=== PATIENT | male | born 1965 | race African-American/Black ===

== ENCOUNTER 2021-02-17 01:57 | Day surgery (SDC) | payer BC, SELFPAY ==
[2021-02-02 13:18] VITALS: BMI 30.4
[2021-02-17 08:48] VITALS: BP 152/105; PULSE 76; RESP 16; TEMP 36.1; O2SAT 99
[2021-02-17] MEDS: LACTATED RINGERS 1,000 ML 150 ML IV CONT (09:01)
--- NOTE | 2021-02-17 09:31 | WPDANESEPPF ---
Anes - Initial Pre Proc Eval Procedure: Operation Date: 02/17/21 09:30 Proposed Procedures p Screening Colonoscopy - Aubrey Reyez MD Date/Time: 02/17/21 09:31 Surgeon: Aubrey Reyez MD Pre Op Diagnosis: family hx of colon ca, 280.0 Patient Data Age: 55 Gender: M Height: 1.73 m Weight: 91 kg Last Vital Signs Temp 97.0 F L 02/17/21 08:48 Pulse 76 02/17/21 08:48 Resp 16 02/17/21 08:48 BP 152/105 H 02/17/21 08:48 Pulse Ox 99 02/17/21 08:48 Allergies Allergy/AdvReac Type Severity Reaction Status Date / Time Penicillins Allergy Unknown Nausea and Verified 02/17/21 08:34 Vomiting Home Medications Medication Instructions Recorded Confirmed Type cholecalciferol (vitamin D3) 50 2,000 unit PO DAILY 04/23/19 02/17/21 History mcg (2,000 unit) tablet omega-3 fatty acids 1,000 mg 1,000 mg PO DAILY 04/12/20 02/17/21 History capsule calcium carbonate 500 mg calcium 500 mg PO DAILY 11/11/20 02/17/21 History (1,250 mg) tablet loratadine [Claritin] 10 mg PO DAILY 02/02/21 02/17/21 History Patient hx anesthesia problems: none Family hx anesthesia problems: none PMFSH Past Medical History Medical History (Updated 02/17/21 @ 09:31 by Yung Thomas MD) Essential (primary) hypertension borderline; no medications Hyperlipidemia, unspecified borderline no medications Family History Family History Father Carcinoma of colon Family history of malignant melanoma Patient's father is Mother Family history of malignant neoplasm of breast in first degree relative Sibling Family history of malignant neoplasm of breast in first degree relative Other Asthma Social History Social History Smoking status: Never smoker Alcohol intake: current Drinks per week: 4 Substance use type: does not use Living arrangements: with family Spiritual care concerns: No Anes - Eval Final PreProcedure Day of Procedure 02/17/21 09:31 Patient weight: overweight Heart: regular rate and rhythm Lungs: clear to auscultation Airway: Mallampati scale class II Neurological: alert and oriented Last oral intake: >/= 8 hours ASA classification: II Emergent: no Anesthetic plan: proceed Anesthesia type and monitoring: general GIVS and standard monitoring Informed Consent: The patient's anesthetic plan and its attendant risks and benefits were discussed with the patient/family/POA. Questions were solicited and answers provided to the satisfaction of the patient/family/POA.
--- NOTE | 2021-02-17 09:42 | PM.HPGS ---
History of Present Illness History of Present Illness Consent: Risks, benefits, and alternatives have been discussed and questions answered. Patient agrees to proceed with procedure. Chief complaint: family hx of colon ca, 280.0 Narrative: Dank Silver is a 55 year old male here for first screening colonoscopy Review of Systems Constitutional: Constitutional: Denies headache(s) and Denies weakness Eyes: Eyes: Denies blurry vision ENT: Reports Normal hearing present, Denies headache(s) and Denies neck pain Cardiovascular: Cardiovascular: Denies chest pain and Denies dyspnea Respiratory: Respiratory: Denies dyspnea Gastrointestinal: Gastrointestinal: Reports no additional gastrointestinal complaints Genitourinary: Genitourinary: Denies dysuria Musculoskeletal: Musculoskeletal: Denies neck pain Integumentary/Breasts: Skin/Breast: Denies dry skin Neurologic: Reports Normal hearing present, Denies headache(s) and Denies weakness Psychiatric: Psychiatric: Denies anxiety Endocrine: Endocrine: Denies change in body appearance Hematologic/Lymphatic: Hematologic/Lymphatic: Denies easy bleeding Allergic/Immunologic: Allergic/Immunologic: Denies urticaria PMF Past Medical History Medical History (Updated 02/17/21 @ 09:31 by Yung Thomas MD) Essential (primary) hypertension borderline; no medications Hyperlipidemia, unspecified borderline no medications Family History Family History Father Carcinoma of colon Family history of malignant melanoma Patient's father is Mother Family history of malignant neoplasm of breast in first degree relative Sibling Family history of malignant neoplasm of breast in first degree relative Other Asthma Social History Social History Smoking status: Never smoker Alcohol intake: current Drinks per week: 4 Substance use type: does not use Living arrangements: with family Spiritual care concerns: No Meds Home Medications and Allergies Home Medications Medication Instructions Recorded Confirmed Type cholecalciferol (vitamin D3) 50 2,000 unit PO DAILY 04/23/19 02/17/21 History mcg (2,000 unit) tablet omega-3 fatty acids 1,000 mg 1,000 mg PO DAILY 04/12/20 02/17/21 History capsule calcium carbonate 500 mg calcium 500 mg PO DAILY 11/11/20 02/17/21 History (1,250 mg) tablet loratadine [Claritin] 10 mg PO DAILY 02/02/21 02/17/21 History Allergies Allergy/AdvReac Type Severity Reaction Status Date / Time Penicillins Allergy Unknown Nausea and Verified 02/17/21 08:34 Vomiting Vital Signs Vital Signs - 24 hr 02/17/21 08:48 Temperature 97.0 F L Pulse Rate 76 Respiratory Rate 16 Blood Pressure 152/105 H Pulse Oximetry 99 Exam Const: General: comfortable and no acute distress HENMT: General nose exam: Normal nares present Eyes: General: appearance normal, both eyes and all related structures Neck: Neck: no JVD Resp: Auscultation: clear to auscultation bilaterally Cardio: Rate: regular rate Rhythm: regular rhythm GI: Inspection: non-distended GI Palp: Yes Soft to palpation Skin: General skin exam: normal color Neuro: General: gait normal Speech: normal speech Extrem: General: normal to inspection Psych: Mental Status: mental status grossly normal Assessment and Plan Assessment and plan (1) Screening for colon cancer: Code(s): Z12.11 - Encounter for screening for malignant neoplasm of colon Status: Acute Assessment and Plan: colonoscopy
[2021-02-17 10:09] VITALS: BP 125/66; PULSE 73; RESP 21; O2SAT 100
[2021-02-17 10:19] VITALS: BP 128/82; PULSE 64; RESP 17; O2SAT 100
[2021-02-17 10:30] VITALS: BP 132/95; PULSE 68; RESP 22; O2SAT 100
== END 2021-02-17 10:46 | disposition home or self-care (01) ==
PROVIDERS: PCP Internal Medicine; Visit Provider Internal Medicine Gastroenterology
PROC: 0DJD8ZZ Inspection of Lower Intestinal Tract, Via Natural or Artificial Opening Endoscopic (ICD-10-PCS; CPT 45378; principal; 2021-02-17 09:30)
DX: Z12.11 Encounter for screening for malignant neoplasm of colon (principal); D12.3 Benign neoplasm of transverse colon; K57.30 Diverticulosis of large intestine without perforation or abscess without bleeding; K64.8 Other hemorrhoids
CPT/HCPCS: 45385; 88305; J2704; J7120